=== PATIENT | male | born 1965 | race Caucasian/White ===

== ENCOUNTER 2018-04-18 13:36 | Emergency (ER) | payer SELFPAY ==
[~2018-04-18] VITALS: Ht 177.8 cm; Wt 86.2 kg
[2018-04-18] MEDS ORDERED: methylPREDNISolone SOD SUCC 125 MG/2 ML VL IV ONE (14:00)
[2018-04-18 14:45] LABS: Basophils # (auto) 0.1 uL; Basophils % (auto) 1.9 % (0.0-2.0); Eosinophils # (auto) 0.1 uL; Hemoglobin 14.8 g/dL (13.5-17.5); Lymphocytes # (auto) 0.3 uL; Lymphocytes % (auto) 6.8 % (10.0-50.0); Mean Corpuscular Hemoglobin 33.5 pg (28.0-32.0); Mean Corpuscular Hgb Conc. 33.7 g/dL (32.0-36.0); Mean Corpuscular Volume 99.2 fL (80.0-100.0); Monocytes # (auto) 0.4 uL; Monocytes % (auto) 8.5 % (0.0-12.0); Neutrophils # (auto) 3.6 uL; Neutrophils % (auto) 80.8 % (37.0-80.0); Nucleated Red Blood Cells % 0.2 %; Platelet Count (auto) 156 10^3/uL (140-450); Red Blood Cells 4.44 10^6/uL (4.5-5.90); Red Cell Distribution Width 13.6 % (11.8-14.3); White Blood Cell 4.5 10^3/uL (4.4-10.8)
[2018-04-18] MEDS ORDERED: cefTRIAXone 1GM/50ML D5W 50 ML IV ONE (14:45)
[2018-04-18 15:00] LABS: Alanine Aminotransferase 45 U/L (16-61); Albumin 3.3 g/dL (3.4-5.0); Anion Gap 10 (5-15); Aspartate Aminotransferase 27 U/L (15-37); Blood Urea Nitrogen 9 mg/dL (7-18); Carbon Dioxide 21 mmol/L (21-32); Chloride 105 mmol/L (98-107); GFR African American 100 mL/min; GFR Non-African American 82 mL/min; Glucose 108 mg/dL (74-106); INR 0.98 (0.9-1.15); Partial Thromboplastin Time 26.2 sec (23.78-33.04); Prothrombin Time 10.5 sec (9.27-12.13); Sodium 136 mmol/L (136-145)
[2018-04-18 15:05] LABS: Alkaline Phosphatase 77 U/L (45-117); Bilirubin, Total 0.5 mg/dL (0.2-1.0); Total Protein 7.4 g/dL (6.4-8.2)
[2018-04-18 18:10] VITALS: BP 140/89
== END 2018-04-18 18:11 | disposition home or self-care (01) ==
LOC: EDBD 13:36 → ER 13:55
DX: J18.9 Pneumonia, unspecified organism (principal)
CPT/HCPCS: 36415; 71046; 80053; 83605; 83880; 84484; 85025; 85610; 85730; 87040; 96365; 96375; 99284; J0696; J2930

== ENCOUNTER 2022-09-09 14:00 | Emergency (ER) | payer SELFPAY ==
[~2022-09-09] VITALS: Ht 175.3 cm; Wt 90.0 kg
[2022-09-09 15:34] VITALS: BP 132/82
[2022-09-09] MEDS ORDERED: IBUPROFEN 800 MG TAB PO ONE (17:45)
[2022-09-09] MEDS ORDERED: IBUP800T27 PO (17:47)
[2022-09-09] MEDS ORDERED: METH750T22 PO (17:47)
== END 2022-09-09 17:49 | disposition home or self-care (01) ==
LOC: ER 14:00 → EDBD 14:00 → ER 17:49
DX: S93.402A Sprain of unspecified ligament of left ankle, initial encounter (principal); S96.912A Strain of unspecified muscle and tendon at ankle and foot level, left foot, initial encounter; S76.012A Strain of muscle, fascia and tendon of left hip, initial encounter; J45.909 Unspecified asthma, uncomplicated; Z88.6 Allergy status to analgesic agent; X58.XXXA Exposure to other specified factors, initial encounter; Y93.I9 Activity, other involving external motion; Y92.89 Other specified places as the place of occurrence of the external cause; Y99.8 Other external cause status
CPT/HCPCS: 72100; 73502; 73610